=== PATIENT | female | born 1970 | race Caucasian/White ===

== ENCOUNTER 2022-08-22 15:03 | Emergency (ER) | payer BC, SELFPAY ==
--- NOTE | ~2022-08-22 | XR_ITS ---
EXAMINATION: XR chest 2V Exam Date/Time: 08/22/2022 18:20 CLINICAL NURSE REVIEWER HISTORY: SOB today, influenza last week Comparison: None available. RESULT: Lines, tubes, and devices: Uncomplicated appearing, incompletely visualized cervical fusion hardware . Lungs and pleura: Clear. Cardiomediastinal silhouette: Unremarkable. Other: No acute osseous or upper abdominal finding. IMPRESSION: No acute cardiopulmonary process. Reviewed, dictated and finalized at location K. ICAL NURSE REVIEWER
--- NOTE | ~2022-08-22 | US_ITS ---
EXAMINATION: US venous doppler [facility] DATE: 08/22/2022 16:27 INDICATION: Left lower limb pain and swelling. TECHNIQUE: Grayscale ultrasound images without and with compression and Doppler ultrasound images of the left lower extremity veins were obtained. COMPARISON: None. FINDINGS: The visualized portions of left common femoral vein, profunda (deep) femoral vein, femoral vein, popl iteal vein, peroneal veins, posterior tibial veins, and greater saphenous vein outflow are patent. IMPRESSION: 1. No deep venous thrombosis. Reviewed, dictated and finalized at location A. L RAIL CUTTER
[2022-08-22 15:21] VITALS: BP 146/107; PULSE 96; RESP 16; TEMP 36.8; O2SAT 97
--- NOTE | 2022-08-22 16:43 | ED.EXTPRO ---
HPI - Extremity Problem General Chief complaint: Extremity Problem,Nontraumatic <APOLLO Wolf Last Filed: 08/22/22 19:38> Stated complaint: SWELLING/DISCOLORATION LEFT LEG <APOLLO Wolf Last Filed: 08/22/22 19:38> Time Seen by Provider: 08/22/22 15:45 <APOLLO Wolf Last Filed: 08/22/22 19:38> Source: patient <APOLLO Wolf Last Filed: 08/22/22 19:38> Mode of arrival: ambulatory <APOLLO Wolf Last Filed: 08/22/22 19:38> Limitations: no limitations <APOLLO Wolf Last Filed: 08/22/22 19:38> History of Present Illness HPI Narrative: Patient is a 51-year-old female who presents to the ED with report of left lower extremity pain and swelling, shortness of breath. Patient reports having intermittent pain and swelling in her left lower leg and foot for the past 1 year, worsening over the last couple months. She saw a new primary care doctor last Monday who scheduled her for an OP venous Doppler ultrasound this Monday. Today however at work patient reported having worsening pain in her left lower extremity and also felt short of breath. She states shortness of breath was worse with exertion. Per patient's boss at bedside, patient was visibly short of breath. Patient notes she was even short of breath walking in from the parking lot to the ED. Denies any chest pain, fevers, cough, cold symptoms, abdominal pain, nausea, vomiting. <APOLLO Wolf Last Filed: 08/22/22 19:38> Related Data Allergies/Adverse reactions: Allergies Allergy/AdvReac Type Severity Reaction Status Date / Time No Known Allergies Allergy Verified 08/22/22 15:20 <APOLLO Wolf Last Filed: 08/22/22 19:38> Review of Systems Review of Systems: CONSTITUTIONAL: Denies fever, chills, or sweats. ENT: Denies rhinorrhea, congestion, sore throat. CARDIOVASCULAR: Reports left lower extremity swelling. Denies chest pain. RESPIRATORY: Reports dyspnea, MENDEZ. Denies cough. GASTROINTESTINAL: Denies abdominal pain, nausea, vomiting. MUSCULOSKELETAL: Reports left lower extremity pain. NEUROLOGIC: Denies tingling, numbness, or weakness. <Gavi Crocker PA-C - Last Filed: 08/22/22 19:38> All systems reviewed & are unremarkable except as noted in HPI and below <Gavi Crocker PA-C - Last Filed: 08/22/22 19:38> [facility] Past Medical History Medical History: Medical History (Updated 08/22/22 @ 19:35 by Gavi Crocker PA-C) No pertinent past medical history <Gavi Crocker PA-C - Last Filed: 08/22/22 19:38> Surgical History Surgical History: Surgical History (Updated 08/22/22 @ 19:35 by Gavi Crocker PA-C) History of cervical spinal surgery <Gavi Crocker PA-C - Last Filed: 08/22/22 19:38> Social History Social History: Social History (Updated 08/22/22 @ 18:00 by Gavi Crocker PA-C) Smoking status: Never smoker <Gavi Crocker PA-C - Last Filed: 08/22/22 19:38> Exam Narrative: GENERAL: Well appearing, obese, non-toxic, in no acute distress. HEAD: Normocephalic, atraumatic. NECK: Supple. No adenopathy, no masses. RESPIRATORY: Airway patent, respirations nonlabored. Clear to auscultation bilaterally, no rales, rhonchi, wheezing. No decreased lung sounds. No distress. CARDIOVASCULAR: Regular rate and rhythm without murmurs, rubs, or gallops. Pedal pulses 2+ and equal bilaterally. MUSCULOSKELETAL: Moves all extremities. Strength/ROM intact without gross deformities. Mild swelling to left lower leg compared to right, area of swelling to dorsal left foot, mildly tender to palpation. Tenderness to palpation in left popliteal region, no palpable Colon's cyst. No significant swelling in right lower extremity. SKIN: Warm, dry, normal color. No rashes. No color or temperature changes in BLE bilaterally. NEURO: A&O X3. Speech clear. Cran
[2022-08-22 17:47] LABS: Basophils Percent Auto 0.5 % (0.2-1.2); Eosinophils Percent Auto 0.5 % (0-4.4); Hematocrit 45.7 % (37.0-47.0); Hemoglobin 15.4 g/dL (12.0-15.0); Immature Granulocyte Absolute 0.03 K/mm3 (0.00-0.031); Immature Granulocyte Percent A 0.4 % (0-0.5); Lymphocytes Absolute Auto 3.02 K/mm3 (0.9-3.2); Lymphocytes Percent Auto 37.8 % (18.3-44.2); Mean Corpuscular HGB Conc 33.7 g/dl (32-36); Mean Corpuscular Hemoglobin 29.1 pg (26-34); Mean Corpuscular Volume 86.4 fl (80-100); Mean Platelet Volume 9.9 fl (7.4-10.4); Monocytes Absolute Auto 0.6 K/mm3 (0.1-0.6); Monocytes Percent Auto 7.1 % (2.6-8.5); Neutrophils Absolute Auto 4.3 K/mm3 (1.3-6.7); Neutrophils Percent Auto 53.7 % (45.5-73.1); Platelet Count Result 249 k/mm3 (150-375); Red Blood Count 5.29 M/mm3 (4.2-5.4); Red Cell Distribution Width 12.7 % (11.5-14.5)
[2022-08-22 18:00] LABS: Alanine Aminotransferase 89 U/L (6-35); Albumin Level 4.8 g/dL (3.5-5.1); Alkaline Phosphatase 180 U/L (38-126); Anion Gap 15 mmol/L (8-16); Aspartate Amino Transferase 52 U/L (14-36); Bilirubin,Total 0.8 mg/dL (0.2-1.3); Blood Urea Nitrogen 16 mg/dL (7-17); Calcium 9.3 mg/dL (8.4-10.2); Carbon Dioxide 21 mmol/L (22-30); Chloride 101 mmol/L (98-107); Estimated CRCL calculation 97 ml/min; Estimated Glomerular Filt Rate > 60; Glucose 325 mg/dL (65-110); Potassium 3.9 mmol/L (3.4-5.0); Sodium 137 mmol/L (137-145)
[2022-08-22 18:05] LABS: D Dimer 0.37 ug/mL (<0.48)
--- NOTE | 2022-08-22 18:17 | ECG_ITS ---
Measurements Intervals [place] Rate: 85 P: 46 AL: 199 QRS: 9 QRSD: 95 T: 45 QT: 371 QTc: 442 Interpretive Statements SINUS RHYTHM NORMAL ECG NO PREVIOUS ECG AVAILABLE FOR COMPARISON Electronically Signed On 08-22-2022 19:49:32 IMPLEMENTATION ENGINEER by Mendel Castro D.O.
== END 2022-08-22 20:15 | disposition home or self-care (01) ==
PROVIDERS: Physician Assistant; Emergency Provider Emergency Medicine; PCP Family Medicine
DX: R60.0 Localized edema (principal); R73.9 Hyperglycemia, unspecified; R06.00 Dyspnea, unspecified; R74.01 Elevation of levels of liver transaminase levels
CPT/HCPCS: 36415; 71046; 80053; 85025; 85380; 93005; 93971; 99284